=== PATIENT | male | born 1985 | race Caucasian/White ===

== ENCOUNTER 2022-03-17 13:30 | Day surgery (SDC) | payer OTHER ==
[~2022-03-17] VITALS: Ht 175.3 cm; Wt 86.9 kg
[2022-03-17] MEDS ORDERED: BOOSTRIX/ADACEL VACCINE (DIPHTH/PERTUSS/ACELL/TETANUS) 0.5ML SYR IM ONE (15:10)
[2022-03-17] MEDS ORDERED: cefTRIAXone SOD 1 GM in D5W MINI-BAG PLUS 50 ML IV ONE (15:25)
[2022-03-17 15:36] LABS: BASO # 0.1 10^3/uL (0.0-0.2); BASO % 0.7 % (0.0-1.0); EOS # 0.1 10^3/uL (0.0-0.5); EOS % 0.6 % (0.0-3.0); HEMATOCRIT 50.5 % (42.0-52.0); HEMOGLOBIN 16.5 g/dl (13.5-17.5); LYMPH % 10.3 % (24.0-44.0); MEAN CORPUSCULAR HEMOGLOBIN 30.4 pg (27.0-33.0); MEAN CORPUSCULAR HGB CONC 32.7 g/dl (32.0-36.5); MEAN CORPUSCULAR VOLUME 93.2 fl (80.0-96.0); MONO # 0.9 10^3/uL (0.0-0.8); MONO % 8.9 % (2.0-8.0); NEUTROPHILS % 78.9 % (36.0-66.0); PLATELET COUNT, AUTOMATED 293 10^3/uL (150-450); RED BLOOD COUNT 5.42 10^6/uL (4.30-6.10); WHITE BLOOD COUNT 10.1 10^3/uL (4.0-10.0)
[2022-03-17 16:00] LABS: CHLORIDE LEVEL 101 MMOL/L (98-107); SODIUM LEVEL 140 MMOL/L (136-145)
[2022-03-17 16:01] LABS: CARBON DIOXIDE LEVEL 29 MMOL/L (20-31)
[2022-03-17] MEDS ORDERED: fentaNYL 100 MCG/2 ML INJECTION ONE ×2 (16:04→16:29)
[2022-03-17] MEDS ORDERED: SUCCINYLCHOLINE 100 MG/5 ML SYRINGE (J0330) ONE (16:05)
[2022-03-17] MEDS ORDERED: propofoL 200 MG/20 ML VIAL ONE (16:05)
[2022-03-17] MEDS ORDERED: ONDANSETRON 4MG 2ML VIAL ONE (16:05)
[2022-03-17] MEDS ORDERED: MIDAZOLAM INJ 2MG/2ML VIAL (J2250 PER 1MG) ONE ×2 (16:05→16:29)
[2022-03-17] MEDS ORDERED: ROCURONIUM BROMIDE 50 MG/5 ML VIAL ONE (16:05)
[2022-03-17] MEDS ORDERED: LIDOCAINE 2% 100MG/5ML SDV (FOR ANES.) ONE (16:05)
[2022-03-17 16:06] LABS: BLOOD UREA NITROGEN 16 MG/DL (9-23); CALCIUM LEVEL 9.6 MG/DL (8.5-10.1); GLUCOSE, FASTING 104 MG/DL (60-100)
[2022-03-17 16:09] LABS: GLOMERULAR FILTRATION RATE > 60.0 (>60)
[2022-03-17] MEDS ORDERED: oxyCODONE 5MG TAB PO PRN (16:10)
[2022-03-17] MEDS ORDERED: EPINEPHrine INJ 1 MG/ML 1ML AMP PN ONE ×2 (16:10→17:10)
[2022-03-17] MEDS ORDERED: MIDAZOLAM INJ 2MG/2ML VIAL (J2250 PER 1MG) IV PRN (16:10)
[2022-03-17] MEDS ORDERED: ROPIvacaine 0.5% 30ML VIAL PN ONE ×2 (16:10→17:10)
[2022-03-17] MEDS ORDERED: fentaNYL 100 MCG/2 ML INJECTION IV PRN ×2 (16:10)
[2022-03-17] MEDS ORDERED: ONDANSETRON 4MG 2ML VIAL IV PRN (16:10)
[2022-03-17 16:12] LABS: POTASSIUM SERUM 4.6 MMOL/L (3.5-5.1)
[2022-03-17] MEDS: fentaNYL 100 MCG/2 ML INJECTION IV PRN ×2 (18:34→18:47)
[2022-03-17] MEDS: MIDAZOLAM INJ 2MG/2ML VIAL (J2250 PER 1MG) IV PRN ×2 (18:35→18:47)
[2022-03-17] MEDS ORDERED: VANCOMYCIN 1000MG/20ML VIAL As Ordered ONE (19:19)
[2022-03-17] MEDS ORDERED: CEPH500C PO (19:48)
[2022-03-17] MEDS ORDERED: PERC5TAB12 PO (19:48)
[2022-03-17 20:30] VITALS: BP 126/78
== END 2022-03-17 20:45 | disposition home or self-care (01) ==
LOC: M ED 13:30 → M SDC 13:31 → M ED 16:09 → M SDC 20:45
PROVIDERS: ATTEND Orthopaedic Surgery Adult Reconstructive Orthopaedic Surgery
DX: S60.552A Superficial foreign body of left hand, initial encounter (principal); W29.4XXA Contact with nail gun, initial encounter; Y92.098 Other place in other non-institutional residence as the place of occurrence of the external cause; Y93.H9 Activity, other involving exterior property and land maintenance, building and construction; Z88.0 Allergy status to penicillin
CPT/HCPCS: 26070; 73110; 73130; 80048; 85025; 87635; 88300; 90471; 90715; 96374; 99284; J0171; J0696; J1100; J2250; J2405; J2795; J3010; J3370

== ENCOUNTER → 2022-03-30 | Outpatient (CLI) | payer OTHER ==
[~2022-03-30] MED LIST: CEPH500C PO; PERC5TAB12 PO
== END ==
LOC: M SOG 07:51
PROVIDERS: ATTEND Orthopaedic Surgery Adult Reconstructive Orthopaedic Surgery
DX: S62.175D Nondisplaced fracture of trapezium [larger multangular], left wrist, subsequent encounter for fracture with routine healing (principal)

== ENCOUNTER → 2023-10-27 | Outpatient (CLI) | payer OTHER | LOC: M OUTALCOH 07:34 | PROVIDERS: ATTEND Psychiatry & Neurology Psychiatry | DX: Z03.89 Encounter for observation for other suspected diseases and conditions ruled out (principal); F17.200 Nicotine dependence, unspecified, uncomplicated ==